=== PATIENT | male | born 1975 | race Two or more races ===

== ENCOUNTER 2024-02-24 19:40 | Inpatient (IN) | payer OTHER, MEDICAID ==
[~2024-02-24] VITALS: Ht 182.9 cm; Wt 85.9 kg
[2024-02-24] MEDS: SODIUM CHLORIDE 0.9% 1,000 ML IV ONE ×4 (19:45→23:15)
[2024-02-24] MEDS: NALOXONE HCL 0.4 MG/ML VIAL IV ONE (19:45)
--- NOTE | 2024-02-24 19:52 | ED.PDOC ---
SOB-HPI HPI Comments A 48 year old male brought in by EMS presents to the ED with a chief complaint of respiratory distress onset today. Per EMS, patient was found on the floor oh his by neighbor, unresponsive. Upon EMS arrival, patient was on the floor, unresponsive, cyanotic and apneic with O2 sat less than 50%, with Afib RVR, 4 mg Narcan IM was given. EMS states there was Paraphernalia drugs found in his home. Upon ED arrival patient BS was 295, was responsive, 1.2 mg of Narcan was given and had spontaneous respiration. He has a history of Schizophrenia and Methamphetamine abuse. No other symptoms or modifying factors present. Time Seen by MD: 19:38 Reviewed notes: Medications, Allergies Information Source: Emergency Med Personnel Mode of Arrival: EMS Severity: Moderate Timing: Minutes Duration: Since onset Prehospital treatment: 12 Lead EKG, Other (4 mg IM Narcan ) Vital Signs Vital Signs Date Time Temp Pulse Resp B/P (MAP) Pulse Ox O2 Delivery O2 Flow Rate FiO2 02/24/24 20:23 96 02/24/24 19:54 97.4 14 118/67 (84) 100 Physical Exam General: The patient is lethargic, arouses to painful stimulus. No acute distress. Skin: Skin in warm, dry and intact. Appropriate color for ethnicity. Nailbeds pink with no cyanosis. HEENT: The head is normocephalic and atraumatic. Conjunctivae are clear without exudates or hemorrhage. Sclera is non-icteric. EOM are intact. Pupils pinpoint bilaterally No signs of nystagmus. Eyelids are normal in appearance without swelling or lesions. Oral mucosa is pink and moist Neck: The neck is supple with normal range of motion. No JVD. Cardiac rapid rate ,, rhythm are normal. No murmurs, gallops, or rubs are auscultated. Respiratory: No signs of respiratory distress. Rhonchi auscultated bilaterally. Abdominal: Abdomen is soft, non-tender without distention. Bowel sounds are present and normoactive in all four quadrants. Extremities: Upper and lower extremities are atraumatic in appearance without deformity or edema. Neurological: Patient is lethargic, not following commands, responds. To painful stimulus. Review of Systems: Unable to obtain Past Medical History PAST MEDICAL HISTORY: Schizophrenia Surgical History: Unknown Family History Family History: Unknown Social History Smoker: Unknown Alcohol: Unknown Drugs: Methamphetamine Lives In: Home Was a procedure done? Was a procedure done?: No Differential Dx Differential Diagnosis: Other Comments Hypoglycemia, overdose, intoxication CVA, respiratory arrest aspiration, ACS, metabolic encephalopathy, sepsis, meningitis, infectious encephalopathy, other X-Ray, Labs, Meds, VS Vital Signs Date Time Temp Pulse Resp B/P (MAP) Pulse Ox O2 Delivery O2 Flow Rate FiO2 02/24/24 20:23 96 02/24/24 19:54 97.4 107 14 118/67 (84) 100 Lab Test 02/24/24 23:00 02/24/24 20:55 02/24/24 20:20 02/24/24 20:00 Range/Units Lactic Acid Level 1.4 11.5 *H 0.4-2.0 mmol/L Troponin I High Sensitivity 104 *H 52 24 </=54 ng/L Plasma/Serum Blood Alcohol < 3.0 < 3.0 <10 mg/dL Blood Gas Specimen Type Arterial Blood Gas Sample Site Left radial Blood Gas Patient Temperature 37.0 Arterial Blood Date Drawn Arterial Blood pH 7.243 *L 7.350-7.450 Arterial Blood Partial Pressure CO2 35.5 35.0-48.0 mmHg Arterial Blood Partial Pressure O2 82.7 L 83.0-108.0 mmHg Arterial Blood HCO3 15.0 L 21.0-28.0 mmol/L Arterial Blood Oxygen Saturation 95.6 94.0-98.0 % Arterial Blood Base Excess -11.4 L -2.0-3.0 mmol/L Arterial Blood Oxyhemoglobin 93.1 L 94.0-98.0 % Arterial Blood Carboxyhemoglobin 2.1 H 0.5-1.5 % Arterial Blood Methemoglobin 0.5 0.0-1.5 % Bartolo Test Modified Blood Gas Total Hemoglobin 15.80 13.5-17.5 g/dL Blood Gas Liter Flow 2.00 Blood Gas Modality Nasal cannula FiO2 % 28.0 Blood Gas Critical Value Read Back Yes Blood Gas Notified Whom david Oleary md Blood Gas Notified Time [id number] Blood Gas Notified By yuliet Bhatt rrt White Blood Count 21.1 H 4.4-10.8 10^3/uL Red Blood Count 5.22 4.5-5.90 10^6/uL Hemoglobin 16.5 13.5-17.5 g/dL Hematocrit 48.8 41.0-53.0 % Mean Corpuscular Volume 93.4 80.0-100.0 fL Mean Corpuscular Hemoglobin 31.6 28.0-32.0 pg Mean Corpuscular Hemoglobin Concent 33.9 32.0-36.0 g/dL Red Cell Distribution Width 14.2 11.8-14.3 % Platelet Count 223 140-450 10^3/uL Mean Platelet Volume 8.0 6.9-10.8 fL Neutrophils (%) (Auto) 83.3 H 37.0-80.0 % Lymphocytes (%) (Auto) 10.6 10.0-50.0 % Monocytes (%) (Auto) 5.6 0.0-12.0 % Eosinophils (%) (Auto) 0.2 0.0-7.0 % Basophils (%) (Auto) 0.3 0.0-2.0 % Neutrophils # (Auto) 17.6 H 1.6-8.6 10 ^3/uL Lymphocytes # (Auto) 2.2 0.4-5.4 10 ^3/uL Monocytes # (Auto) 1.2 0-1.3 10 ^3/uL Eosinophils # (Auto) 0 0-0.8 10 ^3/uL Basophils # (Auto) 0.1 0-0.2 10 ^3/uL Nucleated Red Blood Cells 0.1 % Sodium Level 138 136-145 mmol/L Potassium Level 4.5 3.5-5.1 mmol/L Chloride Level 99 98-107 mmol/L Carbon Dioxide Level 21 20-31 mmol/L Anion Gap 18 H 5-15 Blood Urea Nitrogen 9 9-23 mg/dL Creatinine 1.88 H 0.700-1.30 mg/dL Glomerular Filtration Rate Calc 43 >90 mL/min BUN/Creatinine Ratio 4.8 L 10.0-20.0 Serum Glucose 272 H 74-106 mg/dL Calcium Level 10.2 8.7-10.4 mg/dL Magnesium Level 2.7 H 1.6-2.6 mg/dL Total Bilirubin 0.2 0.2-1.0 mg/dL Aspartate Amino Transferase (AST) 17 13-40 U/L Alanine Aminotransferase (ALT) 30 7-40 U/L Alkaline Phosphatase 72 46-116 U/L B-Type Natriuretic Peptide 6.61 0-100 pg/mL Total Protein 8.1 5.7-8.2 g/dL Albumin 5.2 H 3.2-4.8 g/dL Current Medications Medications (Trade) Dose Ordered Sig/Naomy Route Start Time Stop Time Status Last Admin Sodium Chloride 1,000 ml @ 1,000 mls/hr Q1H ONCE IV 02/24/24 19:45 02/24/24 20:44 DC 02/24/24 19:45 Naloxone HCl (Narcan) 1.2 mg ONCE ONCE IV 02/24/24 20:15 02/24/24 20:16 DC 02/24/24 19:45 Naloxone HCl (Narcan) 2 mg ONCE ONCE IV 02/24/24 20:15 02/24/24 20:16 DC 02/24/24 20:14 Sodium Chloride 1,000 ml @ 130 mls/hr Q7H42M ONCE IV 02/24/24 20:30 02/25/24 04:11 02/24/24 20:30 Naloxone HCl (Narcan) 2 mg ONCE ONCE IV 02/24/24 22:15 02/24/24 22:16 DC 02/24/24 22:15 Sodium Chloride 1,000 ml @ 1,000 mls/hr Q1H ONCE IV 02/24/24 22:30 02/24/24 23:29 DC 02/24/24 22:39 Thiamine HCl 100 mg NOW ONCE PO 02/24/24 23:15 02/24/24 23:41 DC 02/25/24 00:00 Multivitamins (Mvi Tab) 1 tab NOW ONCE PO 02/24/24 23:15 02/24/24 23:41 DC 02/25/24 00:01 Folic Acid 1 mg NOW ONCE PO 02/24/24 23:15 02/24/24 23:41 [place] 02/25/24 00:00 [place] [id number] Ph: [phone] DIAGNOSTIC IMAGING Diagnostic Imaging Report : [id number] Signed PATIENT: SERENA CHRISTINE ACCT: [id number] UNIT: [id number] : 1975 LOC: ER ROOM / BED: / AGE / SEX: 48 / M ADM STATUS: REG ER SERVICE 58 ORDERING PHYSICIAN: JASBIR OLEARY MD PROCEDURE(s): CXR1 - CHEST XRAY 1 VIEW REASON: [facility] ORDER NUMBER(s): [id number], ACCESSION NUMBER(s): [id number] EXAM: XY CHEST XRAY 1 VIEW TECHNIQUE: Single frontal chest radiograph CLINICAL HISTORY: [facility] COMPARISON: None Findings/Impression: Frontal chest radiograph demonstrates no acute osseous or superficial soft tissue abnormalities. The trachea is midline. The cardiac silhouette and mediastinum are within normal limits. No pneumothorax, pleural effusions, or consolidations. ATED BY: TRACEY DENSON DO DICTATED DATE/TIME: 02/24/242050 SIGNED BY: TRACEY DENSON DO SIGNED DATE/TIME: 02/24/242050 CC: Time of 1ST Reevaluation: 20:08 Reevaluation 1ST: Unchanged Patient Education/Counseling: Pt Unresponsive Family Education/Counseling: No Family Present Additional Information HI Data Complexity Ordered Test: LAB, EKG, XY, PHA, RT reviewed results: BNP, BLOOD ALCOHOL, CBC, CMP, DRUG SCREEN, LA, MAGNESIUM, TROP, TROP, TROP, Independent historian: EMS Interpreted Results: EKG, XY Discuss tx/results: patient, medical personnel Departure 1 Departure Time of Disposition: 22:52 Impression: Primary Impression: Altered mental status Additional Impressions: Lactic acidemia Opiate overdose Disposition: ADMITTED INPATIENT Condition: Stable Comments 48-year-old male who presented via EMS after being found down with agonal breathing. On arrival to the emergency department patient was breathing on his own, protecting his own airway. There was concern for possible opiate overdose. Additional doses of Narcan were administered. Number & Complexity of Problems Addressed 1 or more acute or chronic illness that poses a threat to life or bodily function: Respiratory depression, polysubstance overdose, tachycardia, altered mental status, mildly acidosis Extensive evaluation was performed to identify or rule out: CVA, opiate overdose, respiratory arrest, acute coronary syndrome, pneumonia, aspiration Amount and/or Complexity of Data to be Reviewed/Analyzed Tests reviewed: Labs, imaging Documents reviewed: Previous records available for review Independent historian: EMS personnel Independent interpretation of tests: Chest x-ray, EKG, ABG Discussion of management or test interpretation with external physician/other qualified health critical care clinical nurse specialist: N/A Risk of Complications and/or Morbidity or Mortality of Patient Management Patient was at high risk of morbidity from additional diagnostic testing or treatment Drug therapy requiring intensive monitoring for toxicity-IV Narcan administration Diagnosis or treatment significantly limited by social determinants of health: Patient has history of polysubstance abuse, likely noncompliant with outpatient medical care Critical Care Note Critical Care Time?: Yes (35 min-critical care time only) Critical care comment: Total critical care time: Approximately 35 minutes Due to a high probability of clinically significant, life threatening deterioration, the patient required my highest level of preparedness to intervene emergently and I personally spent this critical care time directly and personally managing the patient. This critical care time included obtaining a history; examining the patient; pulse oximetry; ordering and review of studies; arranging urgent treatment with development of a management plan; evaluation of patient's response to treatment; frequent reassessment; and, discussions with other providers. This critical care time was performed to assess and manage the high probability of imminent, life-threatening deterioration that could result in multi-organ failure. It was exclusive of separately billable procedures and treating other patients and teaching time. Please see my other sections and the rest of the note for further information on patient assessment and treatment. Stability Stability form required: No Heart Score Heart Score: Heart Score Response (Comments) Value History N/A 0 EKG N/A 0 Age N/A 0 Risk Factors N/A 0 Troponin N/A 0 Total 0 I personally scribed for JASBIR OLEARY MD ([email or web address]) on 02/24/24 at 19:52. Electronically submitted by Jesi Haro ([email or web address]). I personally scribed for JASBIR OLEARY MD ([email or web address]) on 02/24/24 at 20:09. Electronically submitted by Jesi Haro ([email or web address]). I personally scribed for JASBIR OLEARY MD ([email or web address]) on 02/24/24 at 20:41. Electronically submitted by Jesi Haro ([email or web address]). I personally scribed for JASBIR OLEARY MD ([email or web address]) on 02/24/24 at 20:58. Electronically submitted by Jesi Haro ([email or web address]). JASBIR OLEARY MD Feb 24, 2024 19:52
[2024-02-24 20:00] VITALS: PULSE 116; RESP 20; O2SAT 94
[2024-02-24] MEDS: NALOXONE HCL 1MG/ML 2ML SYRINGE IV ONE ×2 (20:14→22:15)
[2024-02-24 20:23] LABS: Basophils # (auto) 0.1 10 ^3/uL (0-0.2); Basophils % (auto) 0.3 % (0.0-2.0); Eosinophils # (auto) 0 10 ^3/uL (0-0.8); Eosinophils % (auto) 0.2 % (0.0-7.0); Hematocrit 48.8 % (41.0-53.0); Hemoglobin 16.5 g/dL (13.5-17.5); Lymphocytes # (auto) 2.2 10 ^3/uL (0.4-5.4); Lymphocytes % (auto) 10.6 % (10.0-50.0); Mean Corpuscular Hemoglobin 31.6 pg (28.0-32.0); Mean Corpuscular Hgb Conc. 33.9 g/dL (32.0-36.0); Mean Corpuscular Volume 93.4 fL (80.0-100.0); Monocytes # (auto) 1.2 10 ^3/uL (0-1.3); Monocytes % (auto) 5.6 % (0.0-12.0); Neutrophils # (auto) 17.6 10 ^3/uL (1.6-8.6); Neutrophils % (auto) 83.3 % (37.0-80.0); Nucleated Red Blood Cells % 0.1 %; Platelet Count (auto) 223 10^3/uL (140-450); Red Blood Cells 5.22 10^6/uL (4.5-5.90); Red Cell Distribution Width 14.2 % (11.8-14.3); White Blood Cell 21.1 10^3/uL (4.4-10.8)
[2024-02-24 20:28] LABS: Base Excess -11.4 mmol/L (-2.0-3.0)
[2024-02-24 20:36] LABS: Alanine Aminotransferase 30 U/L (7-40); Alkaline Phosphatase 72 U/L (46-116); Calcium 10.2 mg/dL (8.7-10.4); Carbon Dioxide 21 mmol/L (20-31); Chloride 99 mmol/L (98-107)
[2024-02-24 20:37] LABS: Anion Gap 18 (5-15); Aspartate Aminotransferase 17 U/L (13-40); BUN/Creatinine Ratio 4.8 (10.0-20.0); Potassium 4.5 mmol/L (3.5-5.1); Sodium 138 mmol/L (136-145); Total Protein 8.1 g/dL (5.7-8.2)
[2024-02-24 20:51] LABS: Albumin 5.2 g/dL (3.2-4.8); Bilirubin, Total 0.2 mg/dL (0.2-1.0); Blood Alcohol < 3.0 mg/dL (<10); Blood Urea Nitrogen 9 mg/dL (9-23); Glucose 272 mg/dL (74-106); Magnesium 2.7 mg/dL (1.6-2.6)
--- NOTE | 2024-02-24 20:53 | DVH ---
EXAM: XY CHEST XRAY 1 VIEW TECHNIQUE: Single frontal chest radiograph CLINICAL HISTORY: [facility] COMPARISON: None Findings/Impression: Frontal chest radiograph demonstrates no acute osseous or superficial soft tissue abnormalities. The trachea is midline. The cardiac silhouette and mediastinum are within normal limits. No pneumothorax, pleural effusions, or consolidations.
[2024-02-24 21:24] LABS: Lactic Acid w/Reflex 11.5 mmol/L (0.4-2.0)
[2024-02-24] MEDS ORDERED: HALOPERIDOL LACTATE 5 MG/ML INJ VIAL IM PRN (23:15)
[2024-02-24] MEDS ORDERED: ACETAMINOPHEN 325 MG TAB PO PRN (23:15)
[2024-02-24] MEDS ORDERED: HYDROcodone-ACET 5/325MG TAB PO PRN (23:15)
[2024-02-24] MEDS ORDERED: MAALOX PLUS or MAALOX 30 ML PO PRN (23:15)
[2024-02-24] MEDS ORDERED: ONDANSETRON HCL 4 MG/2 ML VIAL IV PRN (23:15)
[2024-02-24] MEDS ORDERED: LORazepam 0.5 MG TAB PO PRN (23:15)
[2024-02-24] MEDS ORDERED: TEMAZEPAM 15 MG CAP PO PRN (23:15)
[2024-02-24] MEDS ORDERED: MORPHINE SULFATE INJ 2 MG/ml SYRG IV PRN (23:15)
[2024-02-24] MEDS ORDERED: DEXTROSE (50%) 50ML SYRG IV PRN (23:15)
[2024-02-24] MEDS ORDERED: DOCUSATE SOD 100 MG CAP PO PRN (23:15)
--- NOTE | 2024-02-24 23:41 | DVHHP2 ---
History of Present Illness Reason for Visit: change in mentation History of Present Illness 48-year-old obese male with stated past medical history of schizophrenia according to the patient was found unresponsive in the feel after taking what he believed to be methamphetamine and a pipe that the patient stated he found the patient has a history of schizophrenia noncompliant to any home medications on initial evaluation patient was 3 dose medications of Narcan were required in order to make the patient more alert and awake without the use of Narcan patient was quite hypoxic lethargic as of now patient is for further evaluation and management in the acute inpatient setting Renal/: Acute renal failure Endocrine: Diabetes Drugs: Other (Methamphetamines) Review of Systems Constitutional: Yes: Weakness; No: Fever, Chills, Sweats, Malaise, Other Eyes: No: Pain, Vision change, Conjunctivae inflammation, Eyelid inflammation, Other, Redness ENT: No: Ear pain, Ear discharge, Nose pain, Nose discharge, Nose congestion, Mouth pain, Mouth swelling, Throat pain, Throat swelling, Other Respiratory: No: Cough, Dry, Shortness of breath, SOB with excertion, Wheezing, Hemoptysis, Pleuritic Pain, Sputum, Wheezing, Other Cardiovascular: Chest Pain, Palpitations; No: Orthopnea, Paroxysmal Noc. Dyspnea, Edema, Lt Headedness, Other Gastrointestinal: No: Nausea, Vomiting, Abdominal Pain, Diarrhea, Constipation, Melena, Hematochezia, Other Genitourinary: No Dysuria, No Frequency, No Incontinence, No Hematuria, No Retention, No Other Musculoskeletal: No: other, neck pain, shoulder pain, arm pain, back pain, hand pain, leg pain, foot pain Skin: No: Rash, Lesions, Jaundice, Bruising, Other Neurological: No: Weakness, Numbness, Incoordination, Change in speech, Confusion, Seizures, Other Allergies: Coded Allergies: NO KNOWN ALLERGIES (Unverified , 02/24/24) Exam Vital Signs Vital Signs Date Time Temp Pulse Resp B/P (MAP) Pulse Ox O2 Delivery O2 Flow Rate FiO2 02/24/24 20:23 96 02/24/24 19:54 97.4 14 118/67 (84) 100 General Appearance: Oriented X3 (Patient is alert when on Narcan), moderate distress HEENT: Atraumatic Respiratory: Clear to auscultation, Normal air movement Cardiovascular: Regular rate, Normal S1, Normal S2 Abdominal: Normal bowel sounds, Soft Extremities: No cyanosis Skin: No rashes, No breakdown Neuro: Normal gait, Normal speech Psych/Mental Status: Mood NL Labs/Xrays Labs Test 02/24/24 23:00 02/24/24 20:20 02/24/24 20:00 Range/Units Blood Gas Specimen Type Arterial Blood Gas Sample Site Left radial Blood Gas Patient Temperature 37.0 Arterial Blood Date Drawn Arterial Blood pH 7.243 *L 7.350-7.450 Arterial Blood Partial Pressure CO2 35.5 35.0-48.0 mmHg Arterial Blood Partial Pressure O2 82.7 L 83.0-108.0 mmHg Arterial Blood HCO3 15.0 L 21.0-28.0 mmol/L Arterial Blood Oxygen Saturation 95.6 94.0-98.0 % Arterial Blood Base Excess -11.4 L -2.0-3.0 mmol/L Arterial Blood Oxyhemoglobin 93.1 L 94.0-98.0 % Arterial Blood Carboxyhemoglobin 2.1 H 0.5-1.5 % Arterial Blood Methemoglobin 0.5 0.0-1.5 % Bartolo Test Modified Blood Gas Total Hemoglobin 15.80 13.5-17.5 g/dL Blood Gas Liter Flow 2.00 Blood Gas Modality Nasal cannula FiO2 % 28.0 Blood Gas Critical Value Read Back Yes Blood Gas Notified Whom david Oleary md Blood Gas Notified Time [id number] Blood Gas Notified By yuliet Bhatt rrt White Blood Count 21.1 H 4.4-10.8 10^3/uL Red Blood Count 5.22 4.5-5.90 10^6/uL Hemoglobin 16.5 13.5-17.5 g/dL Hematocrit 48.8 41.0-53.0 % Mean Corpuscular Volume 93.4 80.0-100.0 fL Mean Corpuscular Hemoglobin 31.6 28.0-32.0 pg Mean Corpuscular Hemoglobin Concent 33.9 32.0-36.0 g/dL Red Cell Distribution Width 14.2 11.8-14.3 % Platelet Count 223 140-450 10^3/uL Mean Platelet Volume 8.0 6.9-10.8 fL Neutrophils (%) (Auto) 83.3 H 37.0-80.0 % Lymphocytes (%) (Auto) 10.6 10.0-50.0 % Monocytes (%) (Auto) 5.6 0.0-12.0 % Eosinophils (%) (Auto) 0.2 0.0-7.0 % Basophils (%) (Auto) 0.3 0.0-2.0 % Neutrophils # (Auto) 17.6 H 1.6-8.6 10 ^3/uL Lymphocytes # (Auto) 2.2 0.4-5.4 10 ^3/uL Monocytes # (Auto) 1.2 0-1.3 10 ^3/uL Eosinophils # (Auto) 0 0-0.8 10 ^3/uL Basophils # (Auto) 0.1 0-0.2 10 ^3/uL Nucleated Red Blood Cells 0.1 % Sodium Level 138 136-145 mmol/L Potassium Level 4.5 3.5-5.1 mmol/L Chloride Level 99 98-107 mmol/L Carbon Dioxide Level 21 20-31 mmol/L Anion Gap 18 H 5-15 Blood Urea Nitrogen 9 9-23 mg/dL Creatinine 1.88 H 0.700-1.30 mg/dL Glomerular Filtration Rate Calc 43 >90 mL/min BUN/Creatinine Ratio 4.8 L 10.0-20.0 Serum Glucose 272 H 74-106 mg/dL Calcium Level 10.2 8.7-10.4 mg/dL Magnesium Level 2.7 H 1.6-2.6 mg/dL Total Bilirubin 0.2 0.2-1.0 mg/dL Aspartate Amino Transferase (AST) 17 13-40 U/L Alanine Aminotransferase (ALT) 30 7-40 U/L Alkaline Phosphatase 72 46-116 U/L B-Type Natriuretic Peptide 6.61 0-100 pg/mL Total Protein 8.1 5.7-8.2 g/dL Albumin 5.2 H 3.2-4.8 g/dL Plasma/Serum Blood Alcohol < 3.0 <10 mg/dL Assessment/Plan Assessment/Plan Admit to EMI Titrate down to tele once patient no longer requires Narcan Drug overdose IV hydration Close monitoring P.r.n. Narcan O2 support BIA IV hydration Request PT a.m. labs Leukocytosis believed to be in the setting of acute shift an overdose setting Repeat labs Initial lactic acidosis noted with a lactate as high as 11 Believed to be in the setting of possible acute seizure Urine drug screen History of schizophrenia Patient not currently on meds consider psych evaluation We will do nightly dose of Seroquel until psych evaluation for better medication regimen P.r.n. IV Haldol as required for severe agitation Hyperglycemia insulin sliding scale while inpatient Repeat labs trend lactate cct 36 min Plan discussed with: Patient My Orders Orders - MARQUISE KHAN MD Procedure Category Date Status Time Urine Ethanol LAB 02/24/24 Logged 23:08 Sodium Chloride 0.9% PHA 02/24/24 Logged 23:15 Thiamine Tab PHA 02/25/24 Logged 10:00 Folic Acid Tablet PHA 02/25/24 Logged 10:00 Multiple Vitamin PHA 02/25/24 Logged Tablet (Mvi Tab) 10:00 Thiamine Tab PHA 02/24/24 Logged 23:15 Multiple Vitamin PHA 02/24/24 Logged Tablet (Mvi Tab) 23:15 Folic Acid Tablet PHA 02/24/24 Logged 23:15 Etoh Withdrawal M[place]ORIE 02/24/24 In Process Assessment 23:08 Etoh Withdrawal [place]IE 02/24/24 In Process Assessment 23:08 Glucose Blood PHA 02/25/24 Logged (Accu-Chek Comfort 00:00 Insulin R (Human) PHA 02/25/24 Logged (Insulin R) 00:00 Dextrose 50% Syringe PHA 02/24/24 Logged 23:15 Admit ADMIT 02/24/24 Transmitted 23:08 Code Status CODE 02/24/24 Transmitted 23:08 Vital Signs M[place] 02/24/24 In Process 23:08 Review Orders With M[place]IE 02/24/24 In Process Adm. 23:08 Consistent DIET 02/25/24 Transmitted Carb(Ccho)Diabetes Breakfast Lorazepam Tablet PHA 02/24/24 Logged (Ativan Tablet) 23:15 Alum & Mag PHA 02/24/24 Logged Hydrox-Simethicone 23:15 Docusate Sodium PHA 02/24/24 Logged Capsule (Colace 23:15 Acetaminophen Tablet PHA 02/24/24 Logged (Tylenol Tablet) 23:15 Temazepam (Restoril) PHA 02/24/24 Logged 23:15 Notify Of Changes M[place]IE 02/24/24 In Process From Base 23:08 Advance Directive [place] 02/24/24 In Process 23:08 Basic Metabolic Panel LAB 02/25/24 Verified 04:00 Complete Blood Count LAB 02/25/24 Verified 04:00 Patient Condition ORDERS 02/24/24 Transmitted 23:08 Allergies [place] 02/24/24 In Process 23:08 Hydrocodone-Acet PHA 02/24/24 Logged 5/325mg Tab ([place] 23:15 Ondansetron Hcl PHA 02/24/24 Logged (Zofran) 23:15 Morphine Sulfate PHA 02/24/24 Logged Injection 23:15 Notify Md Of Changes M[place]IE 02/24/24 In Process From Base 23:08 Field Account Director For M[place]IE 02/24/24 In Process 24 Hours 23:08 Oxygen By Nasal RT 02/24/24 Transmitted Cannula 23:08 Haloperidol Lactate PHA 02/24/24 Logged Injection (Haldol) 23:15 * Psychiatric Consult CONS 02/24/24 Transmitted 23:08 Quetiapine Fumarate PHA 02/25/24 Logged Tablet (Seroquel Tab 18:00 Problem List: (1) Diabetes mellitus type 2 with complications, uncontrolled (2) Drug abuse, amphetamine type (3) Altered mental status (4) Lactic acidemia Date of Service: Feb 24, 2024 Billing Provider: MARQUISE KHAN MD Common Visit Codes: [id number] CARE 30-74 MIN MARQUISE KHAN MD Feb 24, 2024 23:41
[2024-02-24] MEDS ORDERED: NALOXONE HCL 0.4 MG/ML VIAL IV PRN (23:45)
[2024-02-25] MEDS: InsuLIN REG 1unit/0.01ml Soln (100units/ml) SC SCH
[2024-02-25] MEDS: ACCU-CHEK COMFORT CURVE STRIP VI SCH
[2024-02-25] MEDS: FOLIC ACID 1 MG TAB PO ONE
[2024-02-25] MEDS: THIAMINE HCL 100 MG TAB PO ONE
[2024-02-25] MEDS: MULTIPLE VITAMIN TAB PO ONE (00:01)
[2024-02-25 00:28] LABS: Urine Bacteria None Seen /hpf (None Seen); Urine Blood Negative /uL (Negative); Urine Clarity Clear (Clear); Urine Color Light-Yellow (Yellow); Urine Hyaline Cast FEW /lpf (0 - 2); Urine Mucus FEW (None Seen); Urine Protein, UAD TRACE (Negative); Urine Specific Gravity 1.012 (1.001-1.035); Urine Urobilinogen Normal (Negative); Urine WBC 2 /hpf (0 - 3); Urine pH 5.5 (5.0-9.0)
[2024-02-25 01:40] LABS: Cannabinoid Screen, Urine Pos (NEGATIVE)
[2024-02-25 01:45] LABS: Amphetamine Screen, Urine Neg (NEGATIVE); Barbiturate Scree,Urine Neg (NEGATIVE); Benzodiazephine Screen, Urine Neg (NEGATIVE); Cocaine Screen, Urine Neg (NEGATIVE); Opiate Scree,Urine Neg (NEGATIVE); Phencyclidine Screen, Urine Neg (NEGATIVE)
[2024-02-25] MEDS: NALOXONE HCL 1MG/ML 2ML SYRINGE IV ONE (02:30)
--- NOTE | 2024-02-25 04:10 | DVH ---
EXAM: CT HEAD WITHOUT CONTRAST INDICATION: Altered mental status TECHNIQUE: CT of the head without intravenous contrast. Coronal and sagittal reformatted images are submitted. Radiation Dose : 1. Head: CT Dose: CTDI volume is 60.86 mGy. Dose-length product is 1097.11 mGy*cm The dose indicators for CT are the volume Computed Tomography (CT) Dose Index (CTDIvol) and the Dose Length Product (DLP), and are measured in units of mGy and mGy-cm, respectively. These indicators are not patient dose, but values generated from the CT scanner acquisition factors. The report includes radiation exposure data for exposures received during this examination. All CT scans at this medical facility are performed using dose modulation techniques as appropriate to a performed exam including the following: Automated exposure control was utilized; adjustment of the MA and/or KV according to patient size; and use of iterative reconstruction technique. COMPARISON: None FINDINGS: There is no evidence of acute intracranial hemorrhage, extra-axial collection, mass effect, midline s hift, herniation or hydrocephalus. The ventricles, sulci and cisterns are age appropriate. The vick-white differentiation is intact. The mastoid air cells are clear. Mucous retention cysts in the right maxillary sinus. No depressed calvarial fracture. The surrounding soft tissues are unremarkable. IMPRESSION: 1. No evidence of acute intracranial abnormality.
[2024-02-25 05:18] LABS: Basophils # (auto) 0 10 ^3/uL (0-0.2); Basophils % (auto) 0.1 % (0.0-2.0); Eosinophils # (auto) 0 10 ^3/uL (0-0.8); Hemoglobin 13.8 g/dL (13.5-17.5); Lymphocytes # (auto) 1.3 10 ^3/uL (0.4-5.4); Lymphocytes % (auto) 10.5 % (10.0-50.0); Mean Corpuscular Hemoglobin 31.8 pg (28.0-32.0); Mean Corpuscular Hgb Conc. 34.6 g/dL (32.0-36.0); Monocytes # (auto) 1.1 10 ^3/uL (0-1.3); Monocytes % (auto) 8.9 % (0.0-12.0); Neutrophils # (auto) 9.8 10 ^3/uL (1.6-8.6); Neutrophils % (auto) 80.5 % (37.0-80.0); Platelet Count (auto) 162 10^3/uL (140-450); Red Blood Cells 4.35 10^6/uL (4.5-5.90); White Blood Cell 12.2 10^3/uL (4.4-10.8)
[2024-02-25 05:21] LABS: Chloride 106 mmol/L (98-107)
[2024-02-25 05:22] LABS: Anion Gap 6 (5-15); Carbon Dioxide 23 mmol/L (20-31)
[2024-02-25 05:23] LABS: Calcium 8.7 mg/dL (8.7-10.4)
[2024-02-25 05:28] LABS: BUN/Creatinine Ratio 7.1 (10.0-20.0)
[2024-02-25] MEDS: NALOXONE HCL 2 MG in DEXTROSE 495 ML IV ONE (05:30)
[2024-02-25 05:32] LABS: Blood Urea Nitrogen 8 mg/dL (9-23); Glucose 109 mg/dL (74-106); Potassium 5.1 mmol/L (3.5-5.1); Sodium 135 mmol/L (136-145)
[2024-02-25 07:30] VITALS: PULSE 78; RESP 20; O2SAT 98
[2024-02-25] MEDS ORDERED: NALOXONE HCL 2 MG in D5W 5% 495 ML IV ONE (08:15)
[2024-02-25] MEDS: MULTIPLE VITAMIN TAB PO SCH (10:33)
[2024-02-25] MEDS: FOLIC ACID 1 MG TAB PO SCH (10:33)
[2024-02-25] MEDS: THIAMINE HCL 100 MG TAB PO SCH (10:34)
[2024-02-25] MEDS: PIPERACILLIN-TAZOB 3.375GM 100 ML IV SCH (10:34)
--- NOTE | 2024-02-25 10:45 | DVHPN2 ---
Consult Progress Note Objective vital signs Vital Sign Date Time Temp Pulse Resp B/P (MAP) Pulse Ox O2 Delivery O2 Flow Rate FiO2 02/25/24 08:00 80 02/25/24 07:30 20 98 Non-Rebreather 10 N/A 02/25/24 07:29 98.0 117/79 (92) 98.0 Total Intake and Output 02/24/24 02/24/24 02/25/24 15:00 23:00 07:00 Intake Total 260 ml 440 ml Balance 260 ml 440 ml medications Current Medications Medications Dose Ordered Sig/Naomy Route Start Time Stop Time Status Last Admin Dose Admin Thiamine HCl 100 mg DAILY PO 02/25/24 10:00 Folic Acid 1 mg DAILY PO 02/25/24 10:00 Multivitamins 1 tab DAILY PO 02/25/24 10:00 Diagnostic Test (Pha) 1 strip IQ4HR 02/25/24 00:00 02/25/24 08:14 1 STRIP Insulin Human Regular IQ4HR SC 02/25/24 00:00 Dextrose 50 ml UD PRN IV 02/24/24 23:15 Lorazepam 0.5 mg Q6HP PRN PO 02/24/24 23:15 Al Hydrox/Mg Hydrox/Simethicone 30 ml Q6HP PRN PO 02/24/24 23:15 Docusate Sodium 100 mg BIDPRN PRN PO 02/24/24 23:15 Acetaminophen 650 mg Q6HP PRN PO 02/24/24 23:15 Temazepam 15 mg QHSP PRN PO 02/24/24 23:15 Acetaminophen/ Hydrocodone Bitart 1 tab Q4HP PRN PO 02/24/24 23:15 Ondansetron HCl 4 mg Q4HP PRN IV 02/24/24 23:15 Morphine Sulfate 2 mg Q4HPRN PRN IV 02/24/24 23:15 Haloperidol Lactate 5 mg Q8HPRN PRN IM 02/24/24 23:15 Quetiapine Fumarate 200 mg QPM PO 02/25/24 18:00 Naloxone HCl 0.4 mg PRN PRN IV 02/24/24 23:45 Piperacillin Sod/ Tazobactam Sod 100 ml @ 25 mls/hr Q12HR IV 02/25/24 10:00 laboratory and microbiology Laboratory Tests 02/25/24 04:26 Test 02/25/24 04:26 Range/Units Serum Glucose 109 #H 74-106 mg/dL GELACIO TRACY [facility] Feb 25, 2024 10:45
[2024-02-25] MEDS: NALOXONE HCL 2 MG in SODIUM CHL 0.9% 495 ML IV ONE (10:55)
--- NOTE | 2024-02-25 12:10 | DVHPN2 ---
Assessment/Plan Assessment/Plan ICU progress note Subjective 48-year-old male with schizophrenia and entered for drug overdose. Objective Physical exam Alert, oriented x3 PERRLA No JVD Clear breath sounds bilaterally, bradypnea S1-S2 regular rate and rhythm no murmur Abdomen soft nontender, no organomegaly Moving all four extremities No lower extremity edema Lab Anion gap 18 Lactic acid 11 Creatinine 1.8 Troponin 24 -100 UDS positive for fentanyl ABG 7.24/35/83 Imaging Chest x-ray clear Assessment and plan Fentanyl overdose Likely seizure Schizophrenia, noncompliant Type 2 [place] demand ischemia Lactic acidosis High anion gap metabolic acidosis BIA likely be [place] Admit to step-down Discontinue Narcan drip P.r.n. IV Narcan 0.04 for bradypnea End-tidal CO2 1 L bolus nasal saline Repeat creatinine, lactate Obtain collateral from caregiver regarding psych meds Maintain potassium of 4, phosphate of 3 and magnesium of 2 Diet regular GI prophylaxis N/a DVT prophylaxis ambulatory 84 minutes critical care time spent on this patient including evaluation, chart review, formulating plan and communication with team, excluding any procedures or point of care imaging Plan discussed with: Patient Date of Service: Feb 25, 2024 Billing Provider: EMIR HU MD Common Visit Codes: [id number] INP/OBS CARE(HIGH), [id number] CARE 30-74 MIN, [id number] CARE-EACH +30MIN EMIR HU MD Feb 25, 2024 12:10
[2024-02-25] MEDS ORDERED: NALOXONE HCL 0.4 MG/ML VIAL IV PRN (12:30)
[2024-02-25] MEDS: FOLIC ACID 1 MG in D5W 5% 50 ML INJ ONE (13:35)
[2024-02-25] MEDS: THIAMINE 100mg/ml INJ (200mg/2ml VIAL) IV ONE (13:35)
--- NOTE | 2024-02-25 15:54 | DVHINCON2 ---
Date Seen: Feb 25, 2024 Referring Physician MD Roshni Reason for Consultation Elevated troponin History of Present Illness This is a 48-year-old male patient who presents to the emergency room with chief complaint of altered mental status. At the time of assessment, the patient is now alert and oriented x4. The patient reports that the last thing he remembers is doing fentanyl and then does not remember how he came to the hospital. Per records, the patient was found unresponsive by neighbors and EMS was called to the scene. The patient was brought to the emergency room for further evaluation. He was administered with Narcan and initiated on a Narcan drip. Cardiology has now been consulted for elevated troponin levels. Initial twelve lead electrocardiogram reveals normal sinus rhythm without any significant ST segment changes. Initial troponin level of 24ng/L with peak level of 104ng/L. Significant past medical history includes schizophrenia, tobacco use, alcohol use and polysubstance abuse. Past Medical History Past medical history reviewed. No other significant than mentioned above. Past Surgical History Denies all previous surgeries Family History Family history reviewed. Social History Patient admits to fentanyl use Patient has a 10 pack-year history, smokes approximately half pack per day Patient reports daily alcohol use including at least two beers per day Allergies: Coded Allergies: NO KNOWN ALLERGIES (Unverified , 02/24/24) Home Meds Denies Current Medications Current Medications Medications (Trade) Dose Ordered Sig/Naomy Route PRN Reason Start Time Stop Time Status Last Admin Thiamine HCl 100 mg DAILY PO 02/25/24 10:00 02/25/24 12:17 DC 02/25/24 10:34 Folic Acid 1 mg DAILY PO 02/25/24 10:00 02/25/24 12:17 DC 02/25/24 10:33 Multivitamins (Mvi Tab) 1 tab DAILY PO 02/25/24 10:00 02/25/24 10:33 Diagnostic Test (Pha) (Accu-Chek Comfort Curve T) 1 strip IQ4HR 02/25/24 00:00 02/25/24 11:01 Insulin Human Regular (InsuLIN R) IQ4HR SC 02/25/24 00:00 02/25/24 10:59 Dextrose 50 ml UD PRN IV Blood Sugar LESS THAN 60 02/24/24 23:15 Lorazepam (Ativan Tablet) 0.5 mg Q6HP PRN PO ANXIETY 02/24/24 23:15 125/24 12:17 DC Al Hydrox/Mg Hydrox/Simethicone (Maalox Plus) 30 ml Q6HP PRN PO FOR STOMACH DISTRESS 02/24/24 23:15 Docusate Sodium (Colace Capsule) 100 mg BIDPRN PRN PO FOR CONSTIPATION 02/24/24 23:15 02/25/24 12:17 DC Acetaminophen (Tylenol Tablet) 650 mg Q6HP PRN PO PAIN SCALE 1-3 OR TEMP>100.4 02/24/24 23:15 Temazepam (Restoril) 15 mg QHSP PRN PO FOR INSOMNIA 02/24/24 23:15 02/25/24 12:17 DC Acetaminophen/ Hydrocodone Bitart ([place] 5/325MG Tab) 1 tab Q4HP PRN PO MODERATE PAIN (4-6 PAIN SCALE) 02/24/24 23:15 02/25/24 12:17 DC Ondansetron HCl (Zofran) 4 mg Q4HP PRN IV NAUSEA / VOMITING 02/24/24 23:15 Morphine Sulfate 2 mg Q4HPRN PRN IV SEVERE PAIN (7-10 PAIN SCALE) 02/24/24 23:15 02/25/24 12:17 DC Haloperidol Lactate (Haldol) 5 mg Q8HPRN PRN IM AGITATION 02/24/24 23:15 Quetiapine Fumarate (SEROquel TABLET) 200 mg QPM PO 02/25/24 18:00 Naloxone HCl (Narcan) 0.4 mg PRN PRN IV AGITATION 02/24/24 23:45 02/25/24 12:17 DC Piperacillin Sod/ Tazobactam Sod 100 ml @ 25 mls/hr Q12HR IV 02/25/24 10:00 02/25/24 12:17 DC 02/25/24 10:34 Naloxone HCl (Narcan) 0.4 mg ONCE PRN IV FOR RR < 12, CALL MD 02/25/24 12:30 Thiamine HCl 100 mg DAILY IV 02/26/24 10:00 Folic Acid 1 mg/ Dextrose 50.2 ml @ 200.8 mls/ hr DAILY INJ 02/26/24 10:00 Review of Systems Constitutional: No symptom reported Ears, Nose, & Throat: No symptom reported Eyes: No symptom reported Neurological: ALOC Pulmonary/Respiratory: No symptoms reported Cardiovascular: No symptom reported Gastrointestinal: No symptom reported Genitourinary: No symptom reported Musculoskeletal: No symptom reported Skin: No symptom reported Psychiatric: No symptom reported Endocrine: No symptom reported Hematologic/Lymphatic: No symptom reported Vital Signs Vital Signs Date Time Temp Pulse Resp B/P (MAP) Pulse Ox O2 Delivery O2 Flow Rate FiO2 02/25/24 15:00 77 12 101/68 (79) 95 02/25/24 12:00 98.0 98.0 02/25/24 07:30 Non-Rebreather 10 N/A Physical Exam General Appearance: Cooperative. Well-developed. Well-nourished. No acute distress. Pulmonary/Respiratory: Clear, bilateral breaths sounds. Cardiovascular/Chest: Regular rate and rhythm. Peripheral Pulses: 2+ Radial (R). 2+ Radial (L). 2+ Pedal (R). 2+ Pedal (L) Abdominal Exam: Normal bowel sounds. Ankle Exam: Negative ankle edema Lower extremities: Negative lower extremity edema Neuro/Mental Status: A/OX4, coherent. Thoughts/Psych: Normal thought pattern. Appropriate mood and affect. Good judgment and insight. Appearance: No acute distress. Skin Exam: Normal inspection. Normal color. Warm and dry. Labs/Diagnostic Data Labs Test 02/25/24 10:57 02/25/24 04:26 02/25/24 00:30 02/24/24 23:00 Range/Units POC Glucose 155 H 70-106 mg/dl White Blood Count 12.2 #H 4.4-10.8 10^3/uL Red Blood Count 4.35 L 4.5-5.90 10^6/uL Hemoglobin 13.8 # 13.5-17.5 g/dL Hematocrit 40.0 #L 41.0-53.0 % Mean Corpuscular Volume 92.0 80.0-100.0 fL Mean Corpuscular Hemoglobin 31.8 28.0-32.0 pg Mean Corpuscular Hemoglobin Concent 34.6 32.0-36.0 g/dL Red Cell Distribution Width 14.0 11.8-14.3 % Platelet Count 162 140-450 10^3/uL Mean Platelet Volume 7.8 6.9-10.8 fL Neutrophils (%) (Auto) 80.5 H 37.0-80.0 % Lymphocytes (%) (Auto) 10.5 10.0-50.0 % Monocytes (%) (Auto) 8.9 0.0-12.0 % Eosinophils (%) (Auto) 0.0 0.0-7.0 % Basophils (%) (Auto) 0.1 0.0-2.0 % Neutrophils # (Auto) 9.8 H 1.6-8.6 10 ^3/uL Lymphocytes # (Auto) 1.3 0.4-5.4 10 ^3/uL Monocytes # (Auto) 1.1 0-1.3 10 ^3/uL Eosinophils # (Auto) 0 0-0.8 10 ^3/uL Basophils # (Auto) 0 0-0.2 10 ^3/uL Nucleated Red Blood Cells 0.0 % Sodium Level 135 L 136-145 mmol/L Potassium Level 5.1 3.5-5.1 mmol/L Chloride Level 106 98-107 mmol/L Carbon Dioxide Level 23 20-31 mmol/L Anion Gap 6 5-15 Blood Urea Nitrogen 8 L 9-23 mg/dL Creatinine 1.12 0.700-1.30 mg/dL Glomerular Filtration Rate Calc 81 >90 mL/min BUN/Creatinine Ratio 7.1 L 10.0-20.0 Serum Glucose 109 #H 74-106 mg/dL Calcium Level 8.7 8.7-10.4 mg/dL Urine Color Light-yellow Yellow Urine Clarity Clear Clear Urine pH 5.5 5.0-9.0 Urine Specific Hammett 1.012 1.001-1.035 Urine Protein Trace H Negative Urine Ketones Negative Negative Urine Blood Negative Negative /uL Urine Nitrite Negative Negative Urine Bilirubin Negative Negative Urine Urobilinogen Normal Negative mg/dL Urine Leukocyte Esterase Negative Negative /uL Urine RBC <1 0 - 3 /hpf Urine WBC 2 0 - 3 /hpf Urine Squamous Epithelial Cells None seen <5 /hpf Urine Bacteria None seen None Seen /hpf Urine Hyaline Casts Few 0 - 2 /lpf Urine Mucus Few None Seen Urine Glucose Normal Normal mg/dL Urine Opiates Screen Neg NEGATIVE Urine Fentanyl Screen Pos NEGATIVE Urine Barbiturates Screen Neg NEGATIVE Urine Phencyclidine Screen Neg NEGATIVE Urine Amphetamines Screen Neg NEGATIVE Urine Benzodiazepines Screen Neg NEGATIVE Urine Cocaine Screen Neg NEGATIVE Urine Cannabinoids Screen Pos NEGATIVE Lactic Acid Level 1.4 0.4-2.0 mmol/L Troponin I High Sensitivity 104 *H </=54 ng/L Plasma/Serum Blood Alcohol < 3.0 <10 mg/dL Test 02/24/24 20:20 02/24/24 20:00 Range/Units Blood Gas Specimen Type Arterial Blood Gas Sample Site Left radial Blood Gas Patient Temperature 37.0 Arterial Blood Date Drawn Arterial Blood pH 7.243 *L 7.350-7.450 Arterial Blood Partial Pressure CO2 35.5 35.0-48.0 mmHg Arterial Blood Partial Pressure O2 82.7 L 83.0-108.0 mmHg Arterial Blood HCO3 15.0 L 21.0-28.0 mmol/L Arterial Blood Oxygen Saturation 95.6 94.0-98.0 % Arterial Blood Base Excess -11.4 L -2.0-3.0 mmol/L Arterial Blood Oxyhemoglobin 93.1 L 94.0-98.0 % Arterial Blood Carboxyhemoglobin 2.1 H 0.5-1.5 % Arterial Blood Methemoglobin 0.5 0.0-1.5 % Bartolo Test Modified Blood Gas Total Hemoglobin 15.80 13.5-17.5 g/dL Blood Gas Liter Flow 2.00 Blood Gas Modality Nasal cannula FiO2 % 28.0 Blood Gas Critical Value Read Back Yes Blood Gas Notified Whom david Oleary md Blood Gas Notified Time [id number] Blood Gas Notified By yuliet Bhatt rrt Magnesium Level 2.7 H 1.6-2.6 mg/dL Total Bilirubin 0.2 0.2-1.0 mg/dL Aspartate Amino Transferase (AST) 17 13-40 U/L Alanine Aminotransferase (ALT) 30 7-40 U/L Alkaline Phosphatase 72 46-116 U/L B-Type Natriuretic Peptide 6.61 0-100 pg/mL Total Protein 8.1 5.7-8.2 g/dL Albumin 5.2 H 3.2-4.8 g/dL Assessment Fentanyl overdose Lactic acidosis NSTEMI type II secondary to above Schizophrenia Polysubstance abuse Tobacco use Plan/Recommendation We will continue with the following plan/recommendations (Dr. Reno): Patient seen and examined at bedside with . We will proceed with obtaining a transthoracic echocardiogram to evaluate cardiac function. Elevated troponin level likely secondary to drug overdose as well as lactic acidosis. In the setting of an unremarkable echocardiogram, there is no further inpatient cardiac workup indicated at this time. Thank you for allowing us to care for this patient. Please call with any questions or concerns. Critical care time spent: 40 minutes This medical document was created using an electronic medical record system with voice recognition software and computerized dictation system. Although this document has been carefully reviewed, there might still be some phonetic and typographical errors. Occasional wrong-word or ``sound-alike substitutions may have occurred due to the inherent limitations of voice recognition software. These areas are purely typographical due to imperfections of the software programs and do not reflect any compromise in the patient's medical care. Please read the chart carefully and recognize, using context, where these substitutions have occurred. Plan discussed with: Patient Date of Service: Feb 25, 2024 Billing Provider: MAIKEL RENO MD Cardiology Common Codes: [id number] INP/OBS CARE (High) Cardiology Consultation Codes: [id number] CONSULT <45MIN GELACIO TRACY Feb 25, 2024 15:54
[2024-02-25] MEDS: QUEtiapine FUMARATE 100 MG TAB PO SCH (18:42)
[2024-02-25 19:48] VITALS: PULSE 90; RESP 11; O2SAT 97
[2024-02-25 21:13] VITALS: BP 111/72; PULSE 78; RESP 18; TEMP 97.6; O2SAT 97
[2024-02-25 22:07] VITALS: BP 98/66; PULSE 90; RESP 11; O2SAT 97
[2024-02-26] VITALS (7 sets, daily range): BP systolic 88–121; BP diastolic 55–91; PULSE 67–86; RESP 16–20; TEMP 36.6; O2SAT 97–100
[2024-02-26] MEDS ORDERED: BENZ1TAB6 PO (00:38)
[2024-02-26] MEDS ORDERED: HAL5T PO (00:38)
[2024-02-26] MEDS ORDERED: PALI9TAB PO ×2 (00:38→13:43)
[2024-02-26] MEDS ORDERED: DIVA-91 PO (00:38)
[2024-02-26 06:25] LABS: Basophils # (auto) 0 10 ^3/uL (0-0.2); Basophils % (auto) 0.1 % (0.0-2.0); Eosinophils # (auto) 0.1 10 ^3/uL (0-0.8); Eosinophils % (auto) 0.7 % (0.0-7.0); Hematocrit 36.5 % (41.0-53.0); Hemoglobin 12.6 g/dL (13.5-17.5); Lymphocytes # (auto) 2.1 10 ^3/uL (0.4-5.4); Lymphocytes % (auto) 25.8 % (10.0-50.0); Mean Corpuscular Hemoglobin 31.9 pg (28.0-32.0); Mean Corpuscular Hgb Conc. 34.6 g/dL (32.0-36.0); Mean Corpuscular Volume 92.1 fL (80.0-100.0); Monocytes % (auto) 11.9 % (0.0-12.0); Neutrophils % (auto) 61.5 % (37.0-80.0); Nucleated Red Blood Cells % 0.1 %; Platelet Count (auto) 132 10^3/uL (140-450); Red Blood Cells 3.96 10^6/uL (4.5-5.90); Red Cell Distribution Width 13.6 % (11.8-14.3); White Blood Cell 8.1 10^3/uL (4.4-10.8)
[2024-02-26 06:31] LABS: Calcium 9.4 mg/dL (8.7-10.4); Chloride 101 mmol/L (98-107); Potassium 4.7 mmol/L (3.5-5.1); Sodium 136 mmol/L (136-145)
[2024-02-26 06:32] LABS: Anion Gap 3 (5-15)
[2024-02-26 06:37] LABS: Glucose 97 mg/dL (74-106)
[2024-02-26 06:42] LABS: BUN/Creatinine Ratio 5.5 (10.0-20.0); Blood Urea Nitrogen < 5 mg/dL (9-23); Carbon Dioxide 32 mmol/L (20-31)
--- NOTE | 2024-02-26 09:59 | DVHSR ---
APPROVED REPORT EXAM: Two-dimensional and M-mode echocardiogram with Doppler and color Doppler. Blood Pressure: 101/68 mmHg INDICATION evaluate cardiac function RISK FACTORS Height: 6'0, Weight: 240 DIMENSIONS LVDd4.8 (3.8-5.7cm)LA (2D)3.8 (1.9-4.0cm)Aortic Root3.7 (2.0-3.7cm) LVDs3.6 (2.5-4.0cm)LA (MM) (1.9-4.0cm)Aortic Cusp Exc2.2 (1.5-2.0cm) EF (%) 55.0 (55-70%)Rt. Atrium3.8 (1.9-4.0cm)Asc. Aorta3.7 cm IVSd0.7 (0.7-1.1cm)RV (D) (1.8-2.4cm) PWd0.8 (0.7-1.1cm) Mitral Valve MitralMitral Stenosis E wave0.66m/sMV Mean GR.mmHg A wave0.70m/sMV Peak GR.mmHg E/A ratio0.92D MVAcm2 DECEL [id number] 1/2 Timems Aortic Valve Aortic ValveAortic Stenosis V11.06m/Venkata Mean GR.6mmHg V21.57m/Venkata Peak GR.10mmHg LVOT Diameter2.1 (1.8-2.4cm)Doppler AVA2.34cm2 Pulmonic Valve V21.11m/s Tricuspid Valve TR Velocity2.43m/s [id number] Other Information Technically limited study due to patient moving. Conclusion Normal left ventricular size and dimension. Normal left ventricular systolic function estimated ejec tion fraction 55%. There is a grade 1 diastolic dysfunction. Normal right ventricular size and dimension. Normal right ventricular systolic function. Elevated r ight ventricular systolic pressure 26 mm of mercury Normal biatrial size and dimension. Normal aortic valve structure function. Normal mitral valve structure and function. Normal tricuspid valve structure and function. The pulmonary valve is grossly normal. No pericardial effusion.
[2024-02-26] MEDS: FOLIC ACID 1 MG in D5W 5% 50 ML INJ SCH (10:00)
[2024-02-26] MEDS: THIAMINE 100mg/ml INJ (200mg/2ml VIAL) IV SCH (12:13)
--- NOTE | 2024-02-26 13:12 | ECG ---
[facility] Test Date: 2024-02-25 Test Time: 10:08:10 Pat Name: SERENA CHRISTINE Department: er Room: 0216T B Gender: M Hr Coordinator: dr BAJWAB: 1975 Requested By: JASBIR BALDERAS Order Number: [id number] Reading MD: Charles Radford Measurements Intervals [place] Rate: 86 P: 58 WI: 167 QRS: 88 QRSD: 96 T: -5 QT: 354 QTc: 424 Interpretive Statements Sinus rhythm Borderline repolarization abnormality Electronically Signed On 03-03-2024 13:54:39 PST by Charles Radford Please click the below link to view image of tracing.
--- NOTE | 2024-02-26 14:31 | DVHDS2 ---
Discharge Summary Date of Admission Feb 24, 2024 at 23:35 Date of Discharge: Feb 26, 2024 Labs/Diagnostic Data: Laboratory Results Test 02/26/24 12:22 02/26/24 05:44 02/25/24 00:30 02/24/24 23:00 POC Glucose 128 mg/dl (70-106) White Blood Count 8.1 10^3/uL (4.4-10.8) Red Blood Count 3.96 10^6/uL (4.5-5.90) Hemoglobin 12.6 g/dL (13.5-17.5) Hematocrit 36.5 % (41.0-53.0) Mean Corpuscular Volume 92.1 fL (80.0-100.0) Mean Corpuscular Hemoglobin 31.9 pg (28.0-32.0) Mean Corpuscular Hemoglobin Concent 34.6 g/dL (32.0-36.0) Red Cell Distribution Width 13.6 % (11.8-14.3) Platelet Count 132 10^3/uL (140-450) Mean Platelet Volume 7.8 fL (6.9-10.8) Neutrophils (%) (Auto) 61.5 % (37.0-80.0) Lymphocytes (%) (Auto) 25.8 % (10.0-50.0) Monocytes (%) (Auto) 11.9 % (0.0-12.0) Eosinophils (%) (Auto) 0.7 % (0.0-7.0) Basophils (%) (Auto) 0.1 % (0.0-2.0) Neutrophils # (Auto) 5.0 10 ^3/uL (1.6-8.6) Lymphocytes # (Auto) 2.1 10 ^3/uL (0.4-5.4) Monocytes # (Auto) 1.0 10 ^3/uL (0-1.3) Eosinophils # (Auto) 0.1 10 ^3/uL (0-0.8) Basophils # (Auto) 0 10 ^3/uL (0-0.2) Nucleated Red Blood Cells 0.1 % Sodium Level 136 mmol/L (136-145) Potassium Level 4.7 mmol/L (3.5-5.1) Chloride Level 101 mmol/L (98-107) Carbon Dioxide Level 32 mmol/L (20-31) Anion Gap 3 (5-15) Blood Urea Nitrogen < 5 mg/dL (9-23) Creatinine 0.91 mg/dL (0.700-1.30) Glomerular Filtration Rate Calc 103 mL/min (>90) BUN/Creatinine Ratio 5.5 (10.0-20.0) Serum Glucose 97 mg/dL (74-106) Calcium Level 9.4 mg/dL (8.7-10.4) Urine Color Light-yellow (Yellow) Urine Clarity Clear (Clear) Urine pH 5.5 (5.0-9.0) Urine Specific [place] 1.012 (1.001-1.035) Urine Protein Trace (Negative) Urine Ketones Negative (Negative) Urine Blood Negative /uL (Negative) Urine Nitrite Negative (Negative) Urine Bilirubin Negative (Negative) Urine Urobilinogen Normal mg/dL (Negative) Urine Leukocyte Esterase Negative /uL (Negative) Urine RBC <1 /hpf (0 - 3) Urine WBC 2 /hpf (0 - 3) Urine Squamous Epithelial Cells None seen /hpf (<5) Urine Bacteria None seen /hpf (None Seen) Urine Hyaline Casts Few /lpf (0 - 2) Urine Mucus Few (None Seen) Urine Glucose Normal mg/dL (Normal) Urine Opiates Screen Neg (NEGATIVE) Urine Fentanyl Screen Pos (NEGATIVE) Urine Barbiturates Screen Neg (NEGATIVE) Urine Phencyclidine Screen Neg (NEGATIVE) Urine Amphetamines Screen Neg (NEGATIVE) Urine Benzodiazepines Screen Neg (NEGATIVE) Urine Cocaine Screen Neg (NEGATIVE) Urine Cannabinoids Screen Pos (NEGATIVE) Lactic Acid Level 1.4 mmol/L (0.4-2.0) Troponin I High Sensitivity 104 ng/L (</=54) Plasma/Serum Blood Alcohol < 3.0 mg/dL (<10) Test 02/24/24 20:20 02/24/24 20:00 Blood Gas Specimen Type Arterial Blood Gas Sample Site Left radial Blood Gas Patient Temperature 37.0 Arterial Blood Date Drawn Arterial Blood pH 7.243 (7.350-7.450) Arterial Blood Partial Pressure CO2 35.5 mmHg (35.0-48.0) Arterial Blood Partial Pressure O2 82.7 mmHg (83.0-108.0) Arterial Blood HCO3 15.0 mmol/L (21.0-28.0) Arterial Blood Oxygen Saturation 95.6 % (94.0-98.0) Arterial Blood Base Excess -11.4 mmol/L (-2.0-3.0) Arterial Blood Oxyhemoglobin 93.1 % (94.0-98.0) Arterial Blood Carboxyhemoglobin 2.1 % (0.5-1.5) Arterial Blood Methemoglobin 0.5 % (0.0-1.5) Bartolo Test Modified Blood Gas Total Hemoglobin 15.80 g/dL (13.5-17.5) Blood Gas Liter Flow 2.00 Blood Gas Modality Nasal cannula FiO2 % 28.0 Blood Gas Critical Value Read Back Yes Blood Gas Notified Whom david Oleary md Blood Gas Notified Time [id number] Blood Gas Notified By yuliet Bhatt rrt Magnesium Level 2.7 mg/dL (1.6-2.6) Total Bilirubin 0.2 mg/dL (0.2-1.0) Aspartate Amino Transferase (AST) 17 U/L (13-40) Alanine Aminotransferase (ALT) 30 U/L (7-40) Alkaline Phosphatase 72 U/L (46-116) B-Type Natriuretic Peptide 6.61 pg/mL (0-100) Total Protein 8.1 g/dL (5.7-8.2) Albumin 5.2 g/dL (3.2-4.8) Other Laboratory Tests 02/26/24 05:44 Brief Hx & Hospital Course: 48-year-old male with schizophrenia admitted with acute hypoxic hypercapnic respiratory failure secondary to fentanyl overdose. Patient was started on Narcan drip initially, maintaining respiratory rate above 12, later on drip was discontinued switch to p.r.n. which he does not require any dose. Patient was awake, alert and oriented, no active suicidal ideation, no previous attempt. Patient was a known noncompliance for psych medication, follow up with a psychiatrist outside. Patient reported having a caregiver at home. Stable to discharge home Condition at Discharge: Good Final Diagnosis/Problems List Acute hypoxic r hypercapnic respiratory failure secondary to fentanyl overdose Discharge Disposition: Home Discharge Instruct/Medications Diet: Regular Activity: No Restrictions, As Tolerated Follow Up/Referral: PCP, psychiatrist Medications: Resume home meds 39 Discharge Statement: "Patient was advised to return to the ER or call 911 if any headaches, dizziness, shortness of breath, chest pain, abdominal pain, bleeding, fevers, or worsening of medical condition. Patient was counseled about treatment plan, medications, possible side effects, patientverbalized understanding. All questions were answered to the best of my ability. This discharge took greater then 30 minutes in planning, reviewing documentation, counseling the patient, and discussing with other team members." ASSESSMENT ASSESSMENT Assessment Acute hypoxic r hypercapnic respiratory failure secondary to fentanyl overdose Fentanyl overdose Likely seizure from drug overdose, no episode while inpatient Schizophrenia, noncompliant Type 2 [place] demand ischemia Lactic acidosis , resolved High anion gap metabolic acidosis , resolved BIA likely be [place] , resolved Date of Service: Feb 26, 2024 Billing Provider: EMIR HU MD Common Visit Codes: 30052-KOY/OBS DISCH DAY >30min EMIR HU MD Feb 26, 2024 14:31
[2024-02-29 09:20] LABS: Hepatitis B Surface Antigen Negative (Negative)
[2024-02-29 09:41] LABS: Hepatitis C Antibody Negative (Negative)
== END 2024-02-26 18:54 | disposition home or self-care (01) | DRG 917 ==
LOC: EDBD 19:40 → ER 19:40 → TELE 23:35 → TELE-CENTR 02-25 21:12
PROVIDERS: ADMIT Hospitalist; ATTEND Student in an Organized Health Care Education/Training Program
DX: T40.411A Poisoning by fentanyl or fentanyl analogs, accidental (unintentional), initial encounter (principal); I21.A1 Myocardial infarction type 2; N17.0 Acute kidney failure with tubular necrosis; J96.01 Acute respiratory failure with hypoxia; J96.02 Acute respiratory failure with hypercapnia; E87.20 Acidosis, unspecified; F20.9 Schizophrenia, unspecified; R56.9 Unspecified convulsions; E66.9 Obesity, unspecified; D72.829 Elevated white blood cell count, unspecified; E11.9 Type 2 diabetes mellitus without complications; Z79.4 Long term (current) use of insulin; Z91.199 Patient's noncompliance with other medical treatment and regimen due to unspecified reason; Z87.891 Personal history of nicotine dependence; Y92.89 Other specified places as the place of occurrence of the external cause; Z79.899 Other long term (current) drug therapy
CPT/HCPCS: 36415; 36600; 70450; 71045; 80048; 80053; 80307; 80320; 81001; 82805; 82962; 83605; 83735; 83880; 84484; 85025; 86803; 87340; 93005; 93306; 99291; G0378; J1815; J2543; J7060